=== PATIENT | male | born 1955 | race African-American/Black ===

== ENCOUNTER 2017-07-28 01:16 | Observation (INO) | payer OTHER, SELFPAY ==
[2017-07-28 02:00] LABS: #Lymphocytes 0.9 thou/uL (1.20-3.40); #Monocytes 0.4 thou/uL (0.11-0.59); #Neutrophils 8.7 thou/uL (1.40-6.50); %Basophils 0.4 % (0.0-1.0); %Eosinophils 0.2 % (0.0-10.0); %Lymphocytes 8.8 % (21.0-51.0); %Monocytes 4.4 % (0.0-10.0); Hematocrit 42.4 % (42.0-52.0); Mean Platelet Volume 6.9 fL (7.4-10.4); White Blood Cell (WBC) Count 10.1 thou/uL (4.8-10.8)
[2017-07-28 02:21] LABS: ALT (SGPT) 12 U/L (8-55); AST (SGOT) 20 U/L (5-34); Alkaline Phosphatase 71 U/L (40-150); Anion Gap 16 mmol/L (10-20); BUN (Urea Nitrogen) 12 mg/dL (8.4-25.7); Bilirubin, Total 0.5 mg/dL (0.2-1.2); CK (CPK) 165 U/L (30-200); Calc. Creatinine Clearance 0 mL/min (70-130); Calcium 9.2 mg/dL (7.8-10.44); Carbon Dioxide 18 mmol/L (23-31); Chloride 107 mmol/L (98-107); Estimated GFR-MDRD Greater than 90; Globulin 3.3 g/dL (2.4-3.5); Lipase 18 U/L (8-78); Protein, Total 7.2 g/dL (5.8-8.1)
[2017-07-28] MEDS ORDERED: Morphine 2 mg/2ml in 0.9% NaCl PF SYRINGE ONE (03:54)
[2017-07-28] MEDS ORDERED: Ondansetron HCl/PF 4 MG/2 ML Vial IVP PRN (07:05)
[2017-07-28] MEDS ORDERED: Artificial Tears 18 DROP/0.9 ML EA EYE PRN (07:05)
[2017-07-28] MEDS ORDERED: Eucerin (Mineral Oil/Petrolatum,White) 30 gm Jar TOP PRN (07:05)
[2017-07-28] MEDS ORDERED: Milk Of Magnesia 30 ML UDCUP PO PRN (07:05)
[2017-07-28] MEDS ORDERED: Mag-Al 1200 mg/1200 mg/30 ML UDCUP PO PRN (07:05)
[2017-07-28] MEDS ORDERED: Chloraseptic Spray 180 ml Bottle PO PRN (07:05)
[2017-07-28] MEDS ORDERED: Loratadine 10 MG TAB PO PRN (07:05)
[2017-07-28] MEDS ORDERED: Nitroglycerin 0.4 MG TAB (25 Tab Bottle) SL PRN (07:05)
[2017-07-28] MEDS ORDERED: Zolpidem Tartrate 5 MG TAB PO PRN (07:05)
[2017-07-28] MEDS ORDERED: hydrALAZINE 20 MG/ML VIAL SLOW IVP PRN (07:05)
[2017-07-28] MEDS ORDERED: Ondansetron ODT 4 MG TAB PO PRN (07:05)
[2017-07-28] MEDS ORDERED: Loperamide HCl 2 MG CAP PO PRN (07:05)
[2017-07-28] MEDS ORDERED: Diabetic Tussin 200 MG/10 ML UDCUP PO PRN (07:05)
[2017-07-28] MEDS ORDERED: Acetaminophen 325 MG TAB PO PRN (07:05)
[2017-07-28] MEDS ORDERED: Senokot 8.6 MG TAB PO PRN (07:05)
[2017-07-28] MEDS ORDERED: Sodium Chloride 0.65% Nasal 44 ML BOT EA NARE PRN (07:05)
[2017-07-28] MEDS ORDERED: Enoxaparin Sodium 80 MG/0.8 ML SYRINGE SC SCH (07:15)
[2017-07-28 07:49] VITALS: BMI 14.6
[2017-07-28] MEDS ORDERED: Enoxaparin Sodium 60 MG/0.6 ML SYRINGE SC SCH (08:00)
[2017-07-28] MEDS ORDERED: Potassium Chloride 20 MEQ TAB PO SCH (08:00)
[2017-07-28] MEDS: HYDROcodone/Acetaminophen 5/325 mg Tablet PO PRN ×3 (08:03→21:14)
[2017-07-28] MEDS: Aspirin 325 MG TAB PO SCH (08:04)
[2017-07-28 08:14] LABS: Troponin I 0.038 ng/mL (< 0.028)
--- NOTE | 2017-07-28 08:34 | RAD ---
CHEST 1 VIEW: HISTORY: A 62-year-old male with chest pain. COMPARISON: 02/10/17. FINDINGS: Monitor leads overlie the chest. Heart size is normal. The lungs are clear. IMPRESSION: No acute intrathoracic disease. POS: [facility]
--- NOTE | 2017-07-28 11:52 | HP ---
PRIMARY CARE PHYSICIAN: [facility] call admission sometimes patient see Dr. Diego Ayala at [facility]. REASON FOR ADMISSION: Chest pain. HISTORY OF PRESENT ILLNESS: A 62-year-old -Emir[place] male who came to emergency room last h t with complaint of chest pain. Patient reports that chest pain started yesterday evening when he wa s walking around, it was substernal in location, radiated to neck and left upper extremity. Pain int ensity was about 5/10. During night time, pain was persistent, there was no specific aggravating or relieving factor. The patient also felt associated shortness of breath, mild nausea, and palpitation s. He was also feeling dizziness and about to pass out, but he did not have any syncope. He denies any associated fever. He does have mild cough and headache. Patient reports that during entire t, he was having pain and he was not able to sleep and he also had argument with his last night and subsequently he felt more palpitation and he had more pain and that is why he decided to go to [facility] emergency room for evaluation early in the morning. Initially, electrocardiogram was normal. His routine blood tests including cardiac enzymes were negative, subsequently a couple of troponins was i ndeterminant range. When I saw this patient in the morning, at that time he was still hurting in his chest, but intensity of pain significantly reduced. REVIEW OF SYSTEMS: Please see my HPI for pertinent positives and negatives. All other review of sys tems reviewed and negative except as mentioned in the HPI. Constitutional: Weight loss or gain, ability to conduct usual activities. Skin: Rash, itching. Eyes: Double vision, pain. ENT/Mouth: Nose bleeding, neck stiffness, pain, tenderness. Cardiovascular: Palpitations, dyspnea on exertion, orthopnea. Respiratory: Shortness of breath, wheezing, cough, hemoptysis, fever, or night sweats. Gastrointestinal: Poor appetite, abdominal pain, heartburn, nausea, vomiting, constipation, or diarr hea. Genitourinary: Urgency, frequency, dysuria, nocturia. Musculoskeletal: Pain, swelling. Neurologic/Psychiatric: Anxiety, depression. Allergy/Immunologic: Skin rash, bleeding tendency. ALLERGIES: No known drug allergies. CURRENT HOME MEDICATIONS: Aspirin 81 mg p.o. daily. PAST MEDICAL HISTORY: The patient reports that he has history of irregular heartbeat, but he is not able to provide any more detail. PAST SURGICAL HISTORY: Hernia repair. PAST PSYCHIATRIC HISTORY: Reviewed and negative. SOCIAL HISTORY: Patient drinks a couple of beers every day basis. He smokes about 1 pack per day ba [employer]. He denies any other illicit drug abuse. FAMILY HISTORY: The patient's mother had heart disease. No strong family history of cancer or strok e. EMERGENCY ROOM COURSE: Patient was given morphine 2 mg, aspirin 243 mg. PHYSICAL EXAMINATION: VITAL SIGNS: On arrival blood pressure 136/79, pulse 80, respiratory rate 18, temperature 98.5, satu ration 95% on room air, weight 69.8 kilograms. GENERAL: Patient is currently alert, awake, in no obvious acute distress. HEAD: Normocephalic, atraumatic. EYES: Pupils round, reactive to light. Extraocular muscles intact. ENT: Oropharynx within normal limits. Moist mucous membranes. No oral lesions. No pharyngeal eryt césar, no exudate. NECK: Supple. Range of motion is normal. No meningeal signs of irritation. LUNGS: Clear to auscultation without any rhonchi or rales. CARDIAC: S1, S2 regular. No murmur, no gallop, no rub. ABDOMEN: Soft, bowel sounds present, nontender, nondistended. No organomegaly, no mass, no suprapub ic tenderness. CHEST WALL: No point tenderness, no rebound or reproducibility. BACK: Unremarkable, no CVA tenderness. EXTREMITIES: Upper extremity, passive movement of all joints are normal. Lower extremity, no edema. Good peripheral pulsation. SKIN: No skin rash. HEMATOLOGICAL: No lymphadenopathy. PSYCHIATRIC: Normal affect. NEUROLOGIC: Nonfocal examination. The patient moves all 4 limbs. Plantar bilateral flexor. SIGNIFICANT LABORATORY DATA: EKG based on my review reveals normal sinus rhythm within normal limits . Chest x-ray based on my review, no acute cardiopulmonary process. CBC: WBC 10.1, hemoglobin 14.4 , MCV 106, platelet 284. BMP: Sodium 138, potassium 3.3, chloride 107, carbon dioxide 18, BUN 12, c reatinine 0.75, glucose 82, calcium 9.2. LFT: AST 20, ALT is 12, alkaline phosphatase 71, albumin 3 .9, lipase 18, triglyceride 66, cholesterol 154, LDL 79, HDL 62, CK-MB 1.2, troponin I 0.020 and then 0.050, and then 0.038. ASSESSMENT AND PLAN: 1. Acute chest pain. The patient's chest pain description is atypical. The patient's pain was subs ternal in location radiated to left upper extremity with nausea and palpitations, dizziness, and gretel rtness of breath, but duration of pain is a little bit making atypical. He had entire night pain and he has indeterminate troponin. At this point, we consulting Cardiology. We will continue with aspi rin 325 mg p.o. daily. We are going to give him Lovenox 1 mg/kg one time dose and further decision w ill defer to Cardiology. Meanwhile, we will continue nitropatch q.8 hourly. If his troponin remains negative, then we can consider doing stress test or cardiac catheterization. We will defer the deci mauricio to Cardiology. We will obtain echocardiography. I will also check urine drug screen to rule ou t any drug abuse. 2. Macrocytosis likely related with alcohol use. We are going to start folic acid, vitamin B12 ther apy while in hospital. 3. Hypokalemia. We will replace with potassium chloride 40 mEq p.o. one time dose. 4. Hypertension. The patient is not taking any medication at this point. We will continue with nit ropatch q.8 hourly and upon discharge, we will consider adding blood pressure medication. 5. Elevated troponins may be related with demand ischemia versus angina. We will monitor on telemet ry floor tonight. 6. Deep venous thrombosis prophylaxis. Patient is given one 1 dose of Lovenox. 7. Gastrointestinal prophylaxis, Pepcid 20 mg p.o. b.i.d. 8. Code status: The patient is FULL CODE. Disposition plan based on clinical course.
[2017-07-28 12:33] LABS: Troponin I 0.024 ng/mL (< 0.028)
--- NOTE | 2017-07-28 14:24 | CON ---
CARDIOLOGY CONSULTATION NOTE DATE OF CONSULTATION: 07/28/2017 INDICATION FOR CONSULTATION: This is a 62-year-old patient with chest pain. HISTORY OF PRESENT ILLNESS: This is a very pleasant 62-year-old gentleman who has had multiple admis sions to the hospital, both here and also at [facility] due to chest pain. He has undergone a c ardiac catheterization by Dr. Murphy in 2004, which showed normal coronary arteries. He had a stre ss test in 2011, which showed no evidence of ischemia. He recently also back in 05/2016 had another stress test at [facility] due to chest pain and this was also unremarkable for any evidence of i schemia. He continues to have some chest pressure at this time, which he describes as being 5/10, bu t there are no EKG changes to indicate ischemia. He also complained of some palpitations, irregular heartbeat. He had worn a monitor in the past. I believe the last was in 2012, which showed no evide nce of any significant arrhythmias. He does have risk factors of coronary artery disease, which incl ude continued smoking abuse. He smoked a pack a day for over 30 years. This gentleman also said he was in an argument yesterday evening with his fiancee. He became very upset about this, went to get in his car, then he said he noticed his heart rate was beating fast and he passed out and his uncle w as there and they called 911 and he was taken to the emergency room, but he also stated that he had b een having some chest discomfort. I do not see any indication in the records that he had any tachyca rdia or any other abnormalities that were noted at that time. At this time, he remains stable otherw ise, but continues to have chest discomfort. PAST MEDICAL HISTORY: Significant for the hernia repair, appendectomy, transurethral resection of pr ostate and cardiac catheterization. SOCIAL HISTORY: He has a fiancee, he is not . He has 8 children, 4 boys and 4 girls, ages 30 -50 with no evidence of heart disease. He continues to smoke a pack a day for 30 years. He also has alcohol consumption. FAMILY HISTORY: His mother had coronary artery disease. ALLERGIES: None. MEDICATIONS: Include Tylenol, [place], Maalox, Artificial Tears, aspirin, vitamin B12, Pepcid, Folvite , Robitussin, Apresoline, Imodium, Claritin, Milk of Magnesia and other p.r.n. medications, also nitr oglycerin that he has half an inch q.8 hours paste, otherwise no significant cardiac medications. REVIEW OF SYSTEMS: A 12-point review of systems is unremarkable except he continues to smoke. He de león d an episode of syncope and he has chest pain as noted above. PHYSICAL EXAMINATION: GENERAL: Reveals a well-developed, well-nourished patient. VITAL SIGNS: Blood pressure is 160/85, heart rate is 65. He is afebrile and respiratory rate is 16. HEENT: Shows head to be normocephalic and atraumatic. Carotid pulses are present. There are no bru its. There is no JVD. The thyroid is not enlarged. Oral mucosa is pink and moist. CHEST: Clear to auscultation without rales, rhonchi or wheezing. CARDIOVASCULAR: Reveals regular rate and rhythm. There is a normal S1, S2. There is no S3 or S4. There were no significant murmurs, heaves, thrills, bruits or rubs noted. ABDOMEN: Soft and nontender without any significant masses. Positive bowel sounds are present. Fem oral pulses are present. EXTREMITIES: Showed no clubbing, cyanosis or edema. Pedal pulses are also present. NEUROLOGIC: Neurologically, the patient appears to be fully intact. SKIN: Warm and dry. IMAGING DATA: EKG shows normal sinus rhythm, no acute changes. Cardiac enzymes were slightly indete rminate. On admission, it was 0.02, increased up to 0.05. It is now back down to 0.038 with an MB o f 1.2, not indicative of myocardial infarction. No indication that the patient has any ischemia and with the stress test in the past that have been unremarkable and a cardiac catheterization also, whic h has been unremarkable. One option will be to proceed again with a repeat stress test since this de león s been one year since his last stress test. If there are any changes, then I would suggest a repeat cardiac catheterization at this time. Otherwise, the patient could be continued on his medical manag ement. IMPRESSION: 1. Chest pain. Rule out protocol. I did not believe the slight bump in the cardiac enzymes are due to a myocardial infarction. If he indeed did have some tachycardia yesterday, then most likely that was the etiology of the slight increase in the cardiac enzymes, uncertain of what he means by or wha t kind of arrhythmia he had. At this time, we will continue to monitor the patient. I will schedule him for a repeat stress test to see if there are any changes and if so, he will need to undergo card iac catheterization. 2. History of continued tobacco abuse. He will be strongly encouraged to stop smoking. He may need smoking cessation information to help at least curb or stop his overall tobacco use. 3. Possible history of syncope. Once the patient is discharged, he may benefit from undergoing anot her event monitor or even possibly a LINQ implantation versus a long-term looping recorder to determi ne the episodes of possible repeat syncope. We will continue to follow the patient with you, but at this time, I did not believe he is a reasonable candidate for cardiac catheterization. I will need t o do stress testing prior to proceeding with cardiac catheterization.
[2017-07-28 15:15] LABS: Amphetamine Not Detected (NotDetected); Methadone Not Detected (NotDetected); Methamphetamine Not Detected (NotDetected)
[2017-07-28] MEDS ORDERED: Regadenoson 0.4 MG/5 ML SYRINGE ONE (15:34)
[2017-07-28] MEDS: Folic Acid 1 MG TAB PO SCH (16:56)
[2017-07-28] MEDS: Famotidine 20 MG TAB PO SCH ×2 (16:56→21:14)
[2017-07-28] MEDS: Cyanocobalamin (Vitamin B-12) 1,000 MCG TAB PO SCH (16:56)
[2017-07-28] MEDS: Nitroglycerin 2% Ointment 1 INCH/1 GM Packet TOP SCH ×2 (16:58→21:15)
--- NOTE | 2017-07-28 18:39 | NM ---
RADIONUCLIDE STRESS REST MYOCARDIAL PERFUSION SCAN WITH CT ATTENUATION CORRETION AND SPECT IMAGING LEFT VENTRICULAR WALL MOTION EVALUATION AND EJECTION FRACTION: History: Chest pain. FINDINGS: Yoseph protocol was used for a total test time of 9 minutes, 1 second. On the stress and rest images, there is homogeneous uptake of radiotracer throughout the left ventricular myocardium without focal p erfusion defect or reversibility. QGS analysis of gated SPECT images shows no focal wall motion abnormalities. TID: 1.1 LHI: 34% Left ventricular ejection fraction is calculated at 59%. IMPRESSION: Normal myocardial perfusion scan showing no evidence of ischemia. Normal LVEF. POS: [facility]
[2017-07-29] MEDS: Nitroglycerin 2% Ointment 1 INCH/1 GM Packet TOP SCH (02:58)
[2017-07-29 04:56] LABS: #Basophils 0.1 thou/uL (0.0-0.2); #Eosinphils 0.2 thou/uL (0.0-0.7); #Lymphocytes 2.8 thou/uL (1.20-3.40); #Monocytes 0.5 thou/uL (0.11-0.59); #Neutrophils 2.3 thou/uL (1.40-6.50); %Basophils 1.6 % (0.0-1.0); %Eosinophils 2.7 % (0.0-10.0); %Lymphocytes 47.5 % (21.0-51.0); %Monocytes 8.5 % (0.0-10.0); Hematocrit 42.5 % (42.0-52.0); Mean Platelet Volume 7.1 fL (7.4-10.4); Red Blood Cell (RBC) Count 3.99 mill/uL (4.70-6.10); White Blood Cell (WBC) Count 5.8 thou/uL (4.8-10.8)
[2017-07-29 05:04] LABS: Anion Gap 9 mmol/L (10-20); BUN (Urea Nitrogen) 9 mg/dL (8.4-25.7); Calc. Creatinine Clearance 65 mL/min (70-130); Calcium 9.1 mg/dL (7.8-10.44); Carbon Dioxide 24 mmol/L (23-31); Chloride 108 mmol/L (98-107); Estimated GFR-MDRD Greater than 90
[2017-07-29 07:39] VITALS: BP 121/64; TEMP 97
[2017-07-29] MEDS: HYDROcodone/Acetaminophen 5/325 mg Tablet PO PRN (07:41)
[2017-07-29] MEDS: Aspirin 325 MG TAB PO SCH (07:41)
[2017-07-29] MEDS: Famotidine 20 MG TAB PO SCH (07:42)
[2017-07-29] MEDS: Folic Acid 1 MG TAB PO SCH (07:42)
[2017-07-29] MEDS: Cyanocobalamin (Vitamin B-12) 1,000 MCG TAB PO SCH (07:42)
--- NOTE | 2017-07-29 13:50 | PDOC.PN ---
- Subjective Encounter Start Date: 07/29/17 Encounter Start Time: 06:30 -: old records requested/rev Patient seen and examined. No new complaints. No overnight events - Objective Resuscitation Status: Resuscitation Status FULL:Full Resuscitation MAR Reviewed: Yes Vital Signs & Weight: Vital Signs (12 hours) Temp Pulse Resp BP BP Pulse Ox 07/29/17 08:00 97.0 F L 54 L 16 07/29/17 07:38 97.0 F L 54 L 16 121/64 93 L 07/29/17 04:18 97.9 F 51 L 14 124/72 97 Weight Weight 108 lb 1 oz I&O: 07/28/17 07/29/17 07/30/17 06:59 06:59 06:59 Intake Total 960 240 Output Total 300 450 Balance 660 -210 Result Diagrams: 07/29/17 04:19 07/29/17 04:19 Radiology Reviewed by me: Yes EKG Reviewed by me: Yes Phys Exam - Physical Examination Constitutional: NAD HEENT: PERRLA, moist MMs, sclera anicteric Neck: no JVD, supple Respiratory: no wheezing, no rales, no rhonchi Cardiovascular: RRR, no significant murmur, no rub Gastrointestinal: soft, non-tender, no distention, positive bowel sounds Musculoskeletal: no edema, pulses present Neurological: non-focal, normal sensation, moves all 4 limbs Psychiatric: normal affect, A&O x 3 Skin: no rash, normal turgor Dx/Plan (1) Chest pain Code(s): R07.9 - CHEST PAIN, UNSPECIFIED Status: Acute (2) Elevated troponin Code(s): R74.8 - ABNORMAL LEVELS OF OTHER SERUM ENZYMES Status: Acute (3) Hypertension Code(s): I10 - ESSENTIAL (PRIMARY) HYPERTENSION Status: Acute (4) Macrocytosis Code(s): D75.89 - OTHER SPECIFIED DISEASES OF BLOOD AND BLOOD-FORMING ORGANS Status: Chronic (5) Hypokalemia Code(s): E87.6 - HYPOKALEMIA Status: Resolved - Plan cont current plan of care, plan discussed w/ family * stable for discharge * see discharge summery * medication reviewed as below * symptomatic treatment.. Review of Systems - Review of Systems ENT: negative: Ear Pain, Ear Discharge, Nose Pain, Nose Discharge, Nose Congestion, Mouth Pain, Mouth Swelling, Throat Pain, Throat Swelling, Other Respiratory: negative: Cough, Dry, Shortness of Breath, Hemoptysis, SOB with Excertion, Pleuritic Pain, Sputum, Wheezing Cardiovascular: negative: Chest Pain, Palpitations, Orthopnea, Paroxysmal Noc. Dyspnea, Edema, Light Headedness, Other Gastrointestinal: negative: Nausea, Vomiting, Abdominal Pain, Diarrhea, Constipation, Melena, Hematochezia, Other Genitourinary: negative: Dysuria, Frequency, Incontinence, Hematuria, Retention , Other Musculoskeletal: negative: Neck Pain, Shoulder Pain, Arm Pain, Back Pain, Hand Pain, Leg Pain, Foot Pain, Other Skin: negative: Rash, Lesions, Ramon, Bruising, Other - Medications/Allergies Allergies/Adverse Reactions: Allergies Allergy/AdvReac Type Severity Reaction Status Date / Time No Known Allergies Allergy Unverified 07/28/17 07:06
--- NOTE | 2017-07-29 15:42 | DIS ---
DATE OF ADMISSION: 07/28/2017 DATE OF DISCHARGE: 07/29/2017 PRIMARY CARE PHYSICIAN: Jamie Cortez M.D. DISCHARGE DISPOSITION: Home. PRIMARY DISCHARGE DIAGNOSES: 1. Chest pain, ruled out acute coronary syndrome. 2. Indeterminate troponin. 3. Macrocytosis. 4. Hypokalemia, corrected. SECONDARY DISCHARGE DIAGNOSES: Alcohol abuse, hypertension, noncompliance with treatment. PRIMARY PROCEDURE/OPERATION: None. RADIOLOGICAL INVESTIGATION: Echocardiography showed EF 55%-60%. Stress test was negative for any is chemia. Chest x-ray was normal. SIGNIFICANT LABORATORY DATA: WBC 5.8, MCV 107, hemoglobin 13.9, sodium 137, creatinine 0.81, troponi n 0.024, LDL 79. Urine drug screen positive for opiates. DISCHARGE MEDICATIONS: Amlodipine 5 mg p.o. daily, aspirin 81 mg p.o. daily, Pepcid 20 mg p.o. b.i.d ., vitamin B12 1000 mcg p.o. daily, and folic acid 1 mg p.o. daily. CONTRAINDICATIONS: None. CODE STATUS: FULL CODE. INPATIENT INSPECTOR MACHINE CUT GLASS: Dr. Cleveland was consulted while in hospital. TEST RESULTS PENDING ON DISCHARGE: None. ALLERGIES: No known drug allergies. DISCHARGE PLAN: Post hospital, patient will follow up with primary care physician in 1 week. HOSPITAL COURSE: A 62-year-old male who was admitted by me. Please see my HPI for further details. The patient was admitted for chest pain. Initially, we suspected unstable angina, but patient's jessica st pain description was atypical given his prolonged hours of continuous chest pain. He had slightly indeterminate troponin and that is why we consulted Cardiology and Cardiology recommended to do stre ss test. Stress test was done that came back normal. We did echocardiography that came back normal. Patient was hypertensive and that is why we started amlodipine on his regimen. We provided patient education about healthy lifestyle and avoidance of alcohol. He has macrocytosis and that is why we started folic acid and vitamin B12. He had potassium low, which was replaced on admission. The patient is seen and examined at bedside today. Please see my progress note from today for furthe r details.
== END 2017-07-29 11:20 | disposition home or self-care (01) ==
LOC: ERS 01:16 → 2SW 03:42
PROVIDERS: ADMIT Internal Medicine; ATTEND Internal Medicine
DX: R07.89 Other chest pain (principal); E87.6 Hypokalemia; I10 Essential (primary) hypertension; D75.89 Other specified diseases of blood and blood-forming organs; R79.89 Other specified abnormal findings of blood chemistry; F10.10 Alcohol abuse, uncomplicated; F17.210 Nicotine dependence, cigarettes, uncomplicated; Z79.82 Long term (current) use of aspirin; Z91.19 Patient's noncompliance with other medical treatment and regimen; Z98.890 Other specified postprocedural states; Z82.49 Family history of ischemic heart disease and other diseases of the circulatory system
CPT/HCPCS: 36415; 71010; 78452; 80048; 80053; 80061; 80306; 82550; 82553; 83690; 84484; 85025; 93005; 93017; 93306; 96372; 96374; 99406; A9500; G0378; J1650; J2270; J2785

== ENCOUNTER 2018-11-28 22:12 | Emergency (ER) | payer SELFPAY ==
[2018-11-28 23:08] LABS: #Basophils 0.1 thou/uL (0.0-0.2); #Eosinphils 0.1 thou/uL (0.0-0.7); #Lymphocytes 1.6 thou/uL (1.20-3.40); #Monocytes 0.4 thou/uL (0.11-0.59); #Neutrophils 4.6 thou/uL (1.40-6.50); %Basophils 0.8 % (0.0-1.0); %Eosinophils 1.6 % (0.0-10.0); %Lymphocytes 23.5 % (21.0-51.0); %Monocytes 6.3 % (0.0-10.0); %Neutrophils 67.8 % (42.0-75.0); Hemoglobin 15.3 g/dL (14.0-18.0); Mean Corpuscular Hemoglobin 35.6 pg (27.0-31.0); Mean Platelet Volume 6.7 fL (7.4-10.4); Platelet Count 326 thou/uL (130-400); Red Blood Cell (RBC) Count 4.31 mill/uL (4.70-6.10); White Blood Cell (WBC) Count 6.7 thou/uL (4.8-10.8)
[2018-11-28] MEDS ORDERED: Acetaminophen 500 MG TAB ONE (23:20)
[2018-11-28 23:25] LABS: RBC Morphology Normal
[2018-11-28 23:27] LABS: ALT (SGPT) 12 U/L (8-55); AST (SGOT) 24 U/L (5-34); Albumin 3.8 g/dL (3.4-4.8); Alcohol 62 mg/dL (Less than 10); Alkaline Phosphatase 70 U/L (40-150); Anion Gap 13 mmol/L (10-20); BUN (Urea Nitrogen) 7 mg/dL (8.4-25.7); Bilirubin, Total 0.5 mg/dL (0.2-1.2); Calc. Creatinine Clearance 0 mL/min (70-130); Calcium 9.7 mg/dL (7.8-10.44); Carbon Dioxide 22 mmol/L (23-31); Chloride 106 mmol/L (98-107); Estimated GFR-MDRD Greater than 90; Globulin 3.2 g/dL (2.4-3.5); Glucose 77 mg/dL (80-115); Potassium 3.9 mmol/L (3.5-5.1); Sodium 137 mmol/L (136-145)
--- NOTE | 2018-11-29 09:33 | CT ---
CT BRAIN WITHOUT CONTRAST: 11/28/2018 HISTORY: Altered mental status. Headache. COMPARISON: 02/10/2017 TECHNIQUE: Axial CT imaging at 5 mm intervals, from the vertex through the skull base, without contrast. FINDINGS: The imaged paranasal sinuses and mastoid air cells are well aerated. There is no displaced calvarial fracture. There is no intracranial hemorrhage, midline shift or mass effect. There is mild periven tricular hypodensity, suggesting a degree of small vessel disease. IMPRESSION: 1. No intracranial hemorrhage, midline shift, or mass effect. 2. Probable mild small vessel disease. POS: [facility]
== END 2018-11-28 23:50 | disposition home or self-care (01) ==
LOC: ERS 22:12
DX: F10.129 Alcohol abuse with intoxication, unspecified (principal); F17.210 Nicotine dependence, cigarettes, uncomplicated; Z79.82 Long term (current) use of aspirin
CPT/HCPCS: 36415; 70450; 80053; 80307; 85025

== ENCOUNTER 2020-03-29 15:03 | Emergency (ER) | payer MEDICARE, OTHER ==
[2020-03-30 14:52] LABS: SARS-CoV-2 MS2 Positive; SARS-CoV-2 N Gene Negative; SARS-CoV-2 S Gene Negative; SARS-CoV-2 orf1ab Negative
== END 2020-03-29 15:38 | disposition home or self-care (01) ==
LOC: ERS 15:03
DX: Z20.828 Contact with and (suspected) exposure to other viral communicable diseases (principal); F17.210 Nicotine dependence, cigarettes, uncomplicated
CPT/HCPCS: 99283; U0003; 87635